=== PATIENT | male | born 1995 | race African-American/Black ===

== ENCOUNTER 2017-10-11 11:18 | Emergency (ER) | payer OTHER ==
[~2017-10-11] VITALS: Ht 180.3 cm; Wt 68.0 kg
[~2017-10-11 11:18] MED LIST: BENTYL10 MG ORAL; ZOFRAN ODT4 MG ORAL
[2017-10-11] MEDS ORDERED: NKM (11:25)
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
[2017-10-11 12:53] VITALS: BP 115/77
[2017-10-11] MEDS ORDERED: IBUPROFEN600 MG ORAL (13:01)
[2017-10-11] MEDS ORDERED: ROBAXIN-750750 MG PO (13:01)
[2017-10-11 13:13] VITALS: BP 115/77
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
== END 2017-10-11 13:15 | disposition home or self-care (01) ==
LOC: EMR 11:35
DX: S13.9XXA Sprain of joints and ligaments of unspecified parts of neck, initial encounter (principal); V13.4XXA Pedal cycle driver injured in collision with car, pick-up truck or van in traffic accident, initial encounter; Y93.55 Activity, bike riding; Y92.488 Other paved roadways as the place of occurrence of the external cause
CPT/HCPCS: 72052; 99284